=== PATIENT | female | born 1970 | race Hispanic/Latino ===

== ENCOUNTER 2018-12-15 20:18 | Emergency (ER) | payer MEDICARE, OTHER ==
[~2018-12-15] VITALS: Ht 167.6 cm; Wt 56.2 kg
[~2018-12-15 20:18] MED LIST: ALEVE220 MG PO; ALIGN4 MG PO; CYCLOBENZAPRINE5 MG PO; FLEXERIL10 MG PO; GABAPENTIN300 MG PO; LEVOTHYROXINE75 MCG PO; PRILOSEC20 MG PO; TYLENOL WITH C1 EACH PO
--- OUTSIDE RECORDS SUMMARY | 2018-12-15 20:22 | XMS REPORT ---
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 Active Problem Pain in unspecified joint M25.50 Active Problem Pain in right shoulder M25.511 Active Problem Otitis media, unspecified, left ear H66.92 Active Problem Leukopenia D72.819 Active Problem Back pain M54.9 Active Problem Rheumatoid arthritis with rheumatoid factor of multiple sites without organ or systems involvement M05.79 Active Problem Raised antibody titer R76.0 Active Problem Raynaud disease I73.00 Active Problem Sjogrens syndrome M35.00 Active Assessment Sjogrens syndrome M35.00 Active Assessment Rheumatoid arthritis with rheumatoid factor of multiple sites without organ or systems involvement M05.79 Active Assessment Encounter for long-term (current) drug use Z79.899 Active Problem Body mass index (BMI) 19 or less, adult Z68.1 Active Medications Medication Code System Code Instructions Start Date End Date Status Dosage Hydroxychloroquine Sulfate ND 61017836149 200 MG Orally Once a day Active 1 tablet with food or milk Linzess ND 26733988248 145 MCG Orally Once a day Active 1 capsule Align ND 49685436456 Orally Active as directed IB guard NDC 0 Orally BID Active 1 capsule Pilocarpine HCl NDC 69292101286 5 MG Active TAKE 1 TABLET BY MOUTH 3 TIMES A DAY Levothyroxine Sodium NDC 99589249456 75 MCG Orally Once a day Active 1 tablet Prevacid NDC 29454026572 30 MG Orally Once a day Active 1 capsule Tylenol Arthritis Pain NDC 45444622896 650 MG Orally every 8 hrs Active 2 tablets as needed Vital Signs Date/Time: September 15, 2018 BMI 19.77 Index Weight 122.5 lbs Height 66 in Temperature 98.8 F Cardiac Monitoring Heart Rate 76 /min Blood Pressure Diastolic 68 mm Hg Blood Pressure Systolic 110 mm Hg Results Name Result Date Reference Range Unit Abnormality Flag CBC (INCLUDES DIFF/PLT) ----ABSOLUTE NEUTROPHILS 2576 31833404 9528-3760 cells/uL N ----MPV 10.6 17763784 7.5-12.5 fL N ----EOSINOPHILS 0.6 21457969 % N ----HEMOGLOBIN 11.7 33861494 11.7-15.5 g/dL N ----MONOCYTES 10.1 02964689 % N ----HEMATOCRIT 34.8 18384389 35.0-45.0 % L ----LYMPHOCYTES 40.7 24553008 % N ----MCV 87.9 01879520 80.0-100.0 fL N ----NEUTROPHILS 47.7 27757159 % N ----MCH 29.5 16416903 27.0-33.0 pg N ----ABSOLUTE BASOPHILS 49 90585703 0-200 cells/uL N ----MCHC 33.6 31494222 32.0-36.0 g/dL N ----BASOPHILS 0.9 06252429 % N ----ABSOLUTE EOSINOPHILS 32 00354100 15-500 cells/uL N ----RDW 12.7 81595595 11.0-15.0 % N ----ABSOLUTE MONOCYTES 545 85395482 200-950 cells/uL N ----WHITE BLOOD CELL COUNT 5.4 69978520 3.8-10.8 Thousand/uL N ----PLATELET COUNT 285 40329532 140-400 Thousand/uL N ----RED BLOOD CELL COUNT 3.96 94049298 3.80-5.10 Million/uL N ----ABSOLUTE LYMPHOCYTES 2198 10960624 850-3900 cells/uL N C-REACTIVE PROTEIN ----C-REACTIVE PROTEIN 0.3 57786515 <8.0 mg/L N SED RATE BY MODIFIED WESTERGREN ----SED RATE BY MODIFIED WESTERGREN 9 48630995 < OR=20 mm/h N COMPREHENSIVE METABOLIC PANEL W/EGFR ----SODIUM 137 08825465 135-146 mmol/L N ----BUN/CREATININE RATIO NOT APPLICABLE 55519357 6-22 (calc) ----CHLORIDE 104 20180915 98-110 mmol/L N ----POTASSIUM 4.6 20180915 3.5-5.3 mmol/L N ----CALCIUM 9.0 20180915 8.6-10.2 mg/dL N ----PROTEIN, TOTAL 6.9 20180915 6.1-8.1 g/dL N ----CARBON DIOXIDE 25 20180915 20-32 mmol/L N ----ALBUMIN/GLOBULIN RATIO 1.7 20180915 1.0-2.5 (calc) N ----eGFR NON-AFR. RUSSIAN 104 20180915 > OR=60 mL/min/1.73m2 N ----BILIRUBIN, TOTAL 0.4 20180915 0.2-1.2 mg/dL N ----eGFR 121 20180915 > OR=60 mL/min/1.73m2 N ----ALBUMIN 4.3 20180915 3.6-5.1 g/dL N ----UREA NITROGEN (BUN) 17 20180915 7-25 mg/dL N ----GLOBULIN 2.6 20180915 1.9-3.7 g/dL (calc) N ----CREATININE 0.69 20180915 0.50-1.10 mg/dL N ----ALT 15 20180915 6-29 U/L N ----GLUCOSE 83 20180915 65-99 mg/dL N ----ALKALINE PHOSPHATASE 68 20180915 33-115 U/L N ----AST 17 20180915 10-35 U/L N Summary Purpose eClinicalWorks Submission
--- OUTSIDE RECORDS SUMMARY | 2018-12-15 20:22 | XMS REPORT ---
Author Author Denisse Mahan Organization eClinicalWorks Address Unknown Phone Unavailable Care Team Providers Care Kiln Cleaner Name Role Phone Denisse Mahan CP Unavailable [...] Active Problem Sjogrens syndrome M35.00 Active Assessment Encounter for long-term (current) drug use Z79.899 Active Assessment Rheumatoid arthritis with rheumatoid factor of multiple sites without organ or systems involvement M05.79 Active Problem Body mass index (BMI) 19 or less, adult Z68.1 Active Medications Medication Code System Code Instructions Start Date End Date Status Dosage Prevacid ND 42742619149 30 MG Orally Once a day Active 1 capsule Tylenol Arthritis Pain NDC 51868325151 650 MG Orally every 8 hrs Active 2 tablets as needed Pilocarpine HCl NDC 05566629666 5 MG Orally Three times a day Active take 1 tablet by mouth 3 times a day Levothyroxine Sodium ND 90455824725 75 MCG Orally Once a day Active 1 tablet Hydroxychloroquine Sulfate ND 84022007136 200 MG Orally Once a day Mar 13, 2018 Active take 1.5 tablet by mouth with food or milk every day Align ND 20830953230 Orally Active as directed Vital Signs Date/Time: September 14, 2017 BMI 20.17 Index Weight 125 lbs Height 66 in Temperature 97.6 F Cardiac Monitoring Heart Rate 76 /min Blood Pressure Diastolic 62 mm Hg Blood Pressure Systolic 100 mm Hg Results No Known Results Summary Purpose eClinicalWorks Submission
--- OUTSIDE RECORDS SUMMARY | 2018-12-15 20:22 | XMS REPORT | Continuity of Care Document ---
Author Author [place] Address Unknown Phone Unavailable Care Team Providers Care Med Peds Name Role Phone [facility] [employer] Unavailable Unavailable Problems Problem Status Onset Date Classification Date Reported Comments Source Sicca syndrome with other organ involvement Active Problem 09/24/2018 Lee Candelarioer Pain in unspecified joint Active Problem 09/24/2018 Lee Candelarioer Pain in right shoulder Active Problem 09/24/2018 Lee Candelarioer Otitis media, unspecified, left ear Active Problem 09/24/2018 Lee Stone Leukopenia Active Problem 09/24/2018 Lee Stone Back pain Active Problem 09/24/2018 Lee Stone Rheumatoid arthritis with rheumatoid factor of multiple sites without organ or systems involvement Active Problem 09/24/2018 Lee Stone Raised antibody titer Active Problem 09/24/2018 Lee Stone Raynaud disease Active Problem 09/24/2018 Lee Stone Sjogrens syndrome Active Problem 09/24/2018 Lee Stone Encounter for long-term drug use Active Diagnosis 09/24/2018 Lee Stone Body mass index 19 or less, adult Active Problem 09/24/2018 Lee Stone Medications Medication Details Route Status Patient Instructions Ordering Provider Order Date Source Hydroxychloroquine Sulfate bid w food NA Active 200 MG Negrito 09/11/2018 Lee Stone PredniSONE 1 tab prn Orally Active 5 MG Orally Once a day Negrito 03/15/2018 Lee Stone Hydroxychloroquine Sulfate take 1.5 tablet by mouth with food or milk every day Orally Active 200 MG Orally Once a day Negrito 03/13/2018 Lee Stone Hydroxychloroquine Sulfate take 1 tablet by mouth with food or milk every day Orally Active 200 MG Orally Once a day [place]ley 09/13/2017 Lee Stone Flector 1 patch to skin Transdermal Active 1.3 % Transdermal Twice a day [place]ley 06/15/2017 Lee Stone Prevacid 1 capsule Orally Active 30 MG Orally Once a day Negrito Lee Stone Tylenol Arthritis Pain 2 tablets as needed Orally Active 650 MG Orally every 8 hrs Negrito Lee Stone Pilocarpine HCl TAKE 1 TABLET BY MOUTH 3 TIMES A DAY NA Active 5 MG Negrito Lee Stone Levothyroxine Sodium 1 tablet Orally Active 75 MCG Orally Once a day Negrito Lee Stone Align as directed Orally Active Orally Negrito Lee Stone Prevacid 1 capsule Orally Active 30 MG Orally Once a day Dudley Lee Stone Hydroxychloroquine Sulfate 1 tablet with food or milk Orally Active 200 MG Orally Once a day Negrito Lee Stone Linzess 1 capsule Orally Active 145 MCG Orally Once a day Negrito Lee Stone IB guard 1 capsule Orally Active Orally BID Negrito Lee Stone Nucynta 1 tablet Orally Active 50 MG Orally every 6 hrs Negrito Lee Stone Hydroxychloroquine Sulfate TAKE 1 TABLET BY MOUTH WITH FOOD OR MILK EVERY DAY NA Active 200 MG Negrito Lee Stone Lyrica 1 capsule Orally Active 75 MG Orally Twice a day Negrito Lee Stone Tizanidine HCl 1 tablet as needed Orally Active 4 MG Orally Three times a day Negrito Lee Stone Allergies, Adverse Reactions, Alerts Substance Category Reaction Severity Reaction type Status Date Reported Comments Source Methotrexate Adverse Reaction nausease/palpitations Adverse Reaction Active 09/15/2018 Lee Stone Leflunomide Adverse Reaction hair loss Adverse Reaction Active 09/15/2018 Lee Stone Immunizations No Data Provided for This Section Results No Data Provided for This Section Pathology Reports No Data Provided for This Section Diagnostic Reports No Data Provided for This Section Consultation Notes No Data Provided for This Section Discharge Summaries No Data Provided for This Section History and Physicals No Data Provided for This Section Vital Signs Vital Sign Value Date Comments Source Weight 122.5 09/15/2018 Lee Stone Height 66 09/15/2018 Lee Stone Temperature Oral (F) 98.8 F 09/15/2018 Lee Stone Heart Rate 76 09/15/2018 Lee Stone Diastolic (mm Hg) 68 09/15/2018 Lee Stone Systolic (mm Hg) 110 09/15/2018 Lee Stone Weight 125 03/15/2018 Lee Stone Height 66 03/15/2018 Lee Stone Temperature Oral (F) 98.3 F 03/15/2018 Lee Stone Heart Rate 68 03/15/2018 Lee Stone Diastolic (mm Hg) 60 03/15/2018 Lee Stone Systolic (mm Hg) 110 03/15/2018 Lee Stone Weight 125 09/14/2017 Lee Stone Height 66 09/14/2017 Lee Stone Temperature Oral (F) 97.6 F 09/14/2017 Lee Stone Heart Rate 76 09/14/2017 Lee Stone Diastolic (mm Hg) 62 09/14/2017 Lee Stone Systolic (mm Hg) 100 09/14/2017 Lee Stone Weight 126 06/15/2017 Lee Stone Height 66 06/15/2017 Lee Stone Temperature Oral (F) 97.5 F 06/15/2017 Lee Stone Heart Rate 78 06/15/2017 Lee Stone Diastolic (mm Hg) 70 06/15/2017 Lee Stone Systolic (mm Hg) 112 06/15/2017 Lee Stone Weight 123 03/03/2017 Lee Stone Height 66 03/03/2017 Lee Stone Temperature Oral (F) 97.0 F 03/03/2017 Lee Stone Heart Rate 74 03/03/2017 Lee Stone Diastolic (mm Hg) 76 03/03/2017 Lee Stone Systolic (mm Hg) 118 03/03/2017 Lee Stone Encounters No Data Provided for This Section Procedures No Data Provided for This Section Assessment and Plan No Data Provided for This Section Plan of Care No Data Provided for This Section Social History No Data Provided for This Section Family History No Data Provided for This Section Advance Directives No Data Provided for This Section Functional Status No Data Provided for This Section
--- OUTSIDE RECORDS SUMMARY | 2018-12-15 20:22 | XMS REPORT ---
Author Author Wesley Stone Organization eClinicalWorks Address Unknown Phone Unavailable Care Team Providers Care Performance Makeup Artist Name Role Phone Wesley Stone CP Unavailable Allergies No Known Allergies Problems Problem Type Condition Code Onset Dates Condition Status Problem Rheumatoid arthritis with rheumatoid factor of multiple sites without organ or systems involvement M05.79 Active Problem Pain in unspecified joint M25.50 Active Problem Body mass index (BMI) 19 or less, adult Z68.1 Active Problem Pain in right shoulder M25.511 Active Problem Otitis media, unspecified, left ear H66.92 Active Problem Raynaud disease I73.00 Active Problem Back pain M54.9 Active Problem Raised antibody titer R76.0 Active Problem 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
--- OUTSIDE RECORDS SUMMARY | 2018-12-15 20:22 | XMS REPORT ---
Author Author Denisse Mahan [facility] eClinicalWorks Address Unknown Phone Unavailable Care Team Providers Care Sr Vice President Name Role Phone Denisse Mahan CP Unavailable Allergies, Adverse Reactions, Alerts Substance Reaction Event Type Methotrexate nausease/palpitations Drug Allergy Problems Problem Type Condition Code [...] Active Problem Sjogrens syndrome M35.00 Active Assessment Leukopenia D72.819 Active Assessment Rheumatoid arthritis with rheumatoid factor of multiple sites without organ or systems involvement M05.79 Active Assessment Sjogrens syndrome M35.00 Active Assessment Encounter for long-term (current) drug use Z79.899 Active Problem Body mass index (BMI) 19 or less, adult Z68.1 Active Medications Medication Code System Code Instructions Start Date End Date Status Dosage Pilocarpine HCl ND 89755371956 5 MG Active TAKE 1 TABLET BY MOUTH 3 TIMES A DAY Nucynta [facility] 92092185787 50 MG Orally every 6 hrs Active 1 tablet Align ND 38026548439 Orally Active as directed Prevacid ND 02511607059 30 MG Orally Once a day Active 1 capsule Hydroxychloroquine Sulfate ND 41786313276 200 MG Active TAKE 1 TABLET BY MOUTH WITH FOOD OR MILK EVERY DAY Lyrica ND 31703584071 75 MG Orally Twice a day Active 1 capsule Tizanidine HCl ND 74183577053 4 MG Orally Three times a day Active 1 tablet as needed Levothyroxine Sodium ND 00856372757 75 MCG Orally Once a day Active 1 tablet Tylenol Arthritis Pain ND 79546511749 650 MG Orally every 8 hrs Active 2 tablets as needed Vital Signs Date/Time: Mar 03, 2017 BMI 19.85 Index Weight 123 lbs Height 66 in Temperature 97.0 F Cardiac Monitoring Heart Rate 74 /min Blood Pressure Diastolic 76 mm Hg Blood Pressure Systolic 118 mm Hg Results Name Result Date Reference Range Unit Abnormality Flag COMPREHENSIVE METABOLIC PANEL W/EGFR ----CALCIUM 9.1 15261073 8.6-10.2 mg/dL N ----CARBON DIOXIDE 28 30547875 20-31 mmol/L N ----ALT 14 09938726 6-29 U/L N ----CREATININE 0.71 28185749 0.50-1.10 mg/dL N ----AST 17 83262180 10-35 U/L N ----eGFR NON-AFR. EQUATORIAL GUINEAN 103 91069232 > OR=60 mL/min/1.73m2 N ----ALKALINE PHOSPHATASE 64 19658826 33-115 U/L N ----eGFR 119 76404914 > OR=60 mL/min/1.73m2 N ----BILIRUBIN, TOTAL 0.3 01905407 0.2-1.2 mg/dL N ----BUN/CREATININE RATIO NOT APPLICABLE 31932584 6-22 (calc) ----ALBUMIN/GLOBULIN RATIO 1.7 58890709 1.0-2.5 (calc) N ----SODIUM 138 25632808 135-146 mmol/L N ----GLOBULIN 2.5 86832281 1.9-3.7 g/dL (calc) N ----POTASSIUM 3.7 61950463 3.5-5.3 mmol/L N ----GLUCOSE 75 96974034 65-99 mg/dL N ----CHLORIDE 104 94006726 98-110 mmol/L N ----ALBUMIN 4.3 79447133 3.6-5.1 g/dL N ----UREA NITROGEN (BUN) 16 45071939 7-25 mg/dL N ----PROTEIN, TOTAL 6.8 93196976 6.1-8.1 g/dL N SED RATE BY MODIFIED WESTERGREN ----SED RATE BY MODIFIED WESTERGREN 6 77383143 < OR=20 mm/h N C-REACTIVE PROTEIN ----C-REACTIVE PROTEIN 0.8 61046519 <8.0 mg/L N CBC (INCLUDES DIFF/PLT) ----MCHC 33.0 47734253 32.0-36.0 g/dL N ----MCH 29.0 26440555 27.0-33.0 pg N ----PLATELET COUNT 225 36024544 140-400 Thousand/uL N ----RDW 12.6 76825284 11.0-15.0 % N ----BASOPHILS 0.9 57943556 % N ----ABSOLUTE NEUTROPHILS 2463 75480041 8326-6988 cells/uL N ----ABSOLUTE LYMPHOCYTES 1659 75310602 850-3900 cells/uL N ----MPV 10.2 53167130 7.5-12.5 fL N ----ABSOLUTE BASOPHILS 42 64854717 0-200 cells/uL N ----HEMATOCRIT 33.3 00431299 35.0-45.0 % L ----NEUTROPHILS 52.4 17815237 % N ----MCV 87.9 99373690 80.0-100.0 fL N ----RED BLOOD CELL COUNT 3.79 65211638 3.80-5.10 Million/uL L ----ABSOLUTE MONOCYTES 494 62005236 200-950 cells/uL N ----ABSOLUTE EOSINOPHILS 42 30413538 15-500 cells/uL N ----HEMOGLOBIN 11.0 35406039 11.7-15.5 g/dL L ----EOSINOPHILS 0.9 64673384 % N ----WHITE BLOOD CELL COUNT 4.7 44590574 3.8-10.8 Thousand/uL N ----LYMPHOCYTES 35.3 69714865 % N ----MONOCYTES 10.5 13266791 % N Summary Purpose eClinicalWorks Submission
--- OUTSIDE RECORDS SUMMARY | 2018-12-15 20:22 | XMS REPORT ---
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 Active Assessment Rheumatoid arthritis with rheumatoid factor of multiple sites without organ or systems involvement M05.79 Active Problem Body mass index (BMI) 19 or less, adult Z68.1 Active Medications Medication Code System Code Instructions Start Date End Date Status Dosage Levothyroxine Sodium ND 81594479311 75 MCG Orally Once a day Active 1 tablet Hydroxychloroquine Sulfate ND 69745981624 200 MG September 11, 2018 Active bid w food Align ND 62271371519 Orally Active as directed PredniSONE ND 93438721064 5 MG Orally Once a day Mar 15, 2018 Apr 14, 2018 Active 1 tab prn Tylenol Arthritis Pain NDC 32191247704 650 MG Orally every 8 hrs Active 2 tablets as needed Prevacid ND 34089251478 30 MG Orally Once a day Active 1 capsule Pilocarpine HCl ND 49982306582 5 MG Active TAKE 1 TABLET BY MOUTH 3 TIMES A DAY Vital Signs Date/Time: Mar 15, 2018 BMI 20.17 Index Weight 125 lbs Height 66 in Temperature 98.3 F Cardiac Monitoring Heart Rate 68 /min Blood Pressure Diastolic 60 mm Hg Blood Pressure Systolic 110 mm Hg Results No Known Results Summary Purpose eClinicalWorks Submission
--- OUTSIDE RECORDS SUMMARY | 2018-12-15 20:22 | XMS REPORT ---
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 Active Problem Pain in unspecified joint M25.50 Active Problem Pain in right shoulder M25.511 Active Problem Body mass index (BMI) 19 or less, adult Z68.1 Active Problem Otitis media, unspecified, left ear H66.92 Active Problem Leukopenia D72.819 Active Problem Back pain M54.9 Active Problem Rheumatoid arthritis with rheumatoid factor of multiple sites without organ or systems involvement M05.79 Active Problem Raised antibody titer R76.0 Active Problem Raynaud disease I73.00 Active Problem Sjogrens syndrome M35.00 Active Medications No Known Medications Results No Known Results Summary Purpose eClinicalWorks Submission
--- OUTSIDE RECORDS SUMMARY | 2018-12-15 20:22 | XMS REPORT ---
Author Author Karli Dudley [facility] eClinicalWorks Address Unknown Phone Unavailable Care Team Providers Care Cognos Report Developer Name Role Phone Karli Dudley Unavailable Allergies, Adverse Reactions, Alerts Substance Reaction [...] long-term (current) drug use Z79.899 Active Assessment Back pain M54.9 Active Assessment Rheumatoid arthritis with rheumatoid factor of multiple sites without organ or systems involvement M05.79 Active Assessment Raynaud disease I73.00 Active Problem Body mass index (BMI) 19 or less, adult Z68.1 Active Medications Medication Code System Code Instructions Start Date End Date Status Dosage Align [facility] 11530201635 Orally Active as directed Levothyroxine Sodium ND 28606316544 75 MCG Orally Once a day Active 1 tablet Tylenol Arthritis Pain ND 47958478286 650 MG Orally every 8 hrs Active 2 tablets as needed Pilocarpine HCl ND 31028376078 5 MG Orally Three times a day Active take 1 tablet by mouth 3 times a day Prevacid ND 86761011199 30 MG Orally Once a day Active 1 capsule Hydroxychloroquine Sulfate ND 03935114517 200 MG Orally Once a day September 13, 2017 Active take 1 tablet by mouth with food or milk every day Flector [facility] 77209008212 1.3 % Transdermal Twice a day Jun 15, 2017 September 13, 2017 Active 1 patch to skin Vital Signs Date/Time: Jun 15, 2017 BMI 20.33 Index Weight 126 lbs Height 66 in Temperature 97.5 F Cardiac Monitoring Heart Rate 78 /min Blood Pressure Diastolic 70 mm Hg Blood Pressure Systolic 112 mm Hg Results No Known Results Summary Purpose eClinicalWorks Submission
--- OUTSIDE RECORDS SUMMARY | 2018-12-15 20:22 | XMS REPORT ---
Author Author [facility] Address Unknown Phone Unavailable Care Team Providers Care Industrial Relations Director Name Role Phone Unavailable Unavailable Problems This patient has no known problems. Allergies, Adverse Reactions, Alerts This patient has no known allergies or adverse reactions. Medications This patient has no known medications. Results Test Description Test Time Test Comments Text Results Atomic Results Result Comments BREAST ULTRASOUND BILATERAL 2018-06-29 16:59:41 - BREAST ULTRASOUND BILATERALULTRASOUND OF BOTH BREASTS AND BOTH AXILLA: 06/29/2018CLINICAL: Supplemental Screening for Dense Breast. Comparison is made to exams dated 06/11/2018 mammogram and 03/15/20 13 ultrasound - [facility]-. Real-time ultrasound of both breasts and both axilla was performed. No abnormalities were seen sonographically in either breast or either axilla. Clinical breast exam was unremarkable.IMPRESSION: NEGATIVE There is no sonographic evidence of malignancy. Patient has been informed that she has areas of dense breast tissue that could make it difficult to find a small cancer. A screening mammogram and supplemental ultrasound for dense breast tissue is recommended in 1 year. Annie Cortez M.D. dm/:06/29/2018 16:59:41 Sql Programmer: Cortney Obregon [facility]-letter sent: BIRADS 1-2 Combo FU Letter Ultrasound BI- RADS: 1 Negative SCR MAMM BILATERAL SEBASTIAN CAD DIGITAL 2018-06-11 13:11:39 - SCR MAMM BILATERAL SEBASTAIN CAD DIGITALBILATERAL DIGITAL SCREENING MAMMOGRAM 3D/2D WITH CAD: 06/11/2018CLINICAL: Asymptomatic. Digital breast tomosynthesis was performed in addition to routine CC and MLO views. Current mammographic images were evaluated by either a [employer] M-Vu or a [employer] ImageChecker CAD (computer aided detection system). Comparison is made to exams dated 05/18/2017 mammogram, 03/12 mammogram, and 03/16/2015 mammogram - [facility]. The tissue of both breasts is heterogeneously dense. This may lower the sensitivity of mammography. There are benign calcifications in both breasts. No suspicious mass, architectural distortion, malignant type calcification, or lymph node abnormality detected. Breast architecture is stable compared to prior exams.IMPRESSION: BENIGNThere is no mammographic evidence of malignancy. Resume annual screening mammography in one year. Dilan Matute M.D. ss/penrad:06/11/2018 13:11:39 Sql Programmer: Roseann Cox FW, [facility] sent: BIRADS 1-2 Normal Mammogram BI-RADS: 2 Benign
--- OUTSIDE RECORDS SUMMARY | 2018-12-15 20:22 | XMS REPORT | Clinical Summary ---
Author Author [facility] Organization [facility] Address Unknown Phone Unavailable Care Team Providers Care Wood Engraver Name Role Phone Kate Ricther MD PCP Allergies Comments Active Allergy Reactions Severity Noted Date butrans patches Buprenorphine 12/09/2016 Added based on information entered during case entry, please review and add reactions, type, and severity as needed Latex 02/26/2017 Leflunomide Other (See 09/14/2017 Comments) Methotrexate Other (See 09/14/2017 Comments) Medications End Date Status Medication Sig Dispensed Refills Start Date Active hydroxychloroquine TAKE 1 TABLET 0 (PLAQUENIL) 200 mg tablet BY MOUTH 7 EVERY DAY WITH FOOD OR MILK after lunch Active levothyroxine (SYNTHROID, TAKE 1 TABLET 1 LEVOXYL) 75 mcg tablet BY MOUTH IN 7 THE MORNING ON AN EMPTY STOMACH ONCE A DAY - in the morning Active pilocarpine (SALAGEN) 5 Take 5 mg by 0 MG tablet mouth 3 7 (three) times a day. Active levocetirizine (XYZAL) 5 Take 5 mg by 1 MG tablet mouth every 7 evening. Active pregabalin (LYRICA) 75 MG Take 75 mg by 0 capsule mouth 2 (two) times a day. Active tiZANidine (ZANAFLEX) 4 Take 4 mg by 0 MG tablet mouth 2 (two) times a day. Active MULTIVITAMIN ORAL Take by 0 mouth. Active NUCYNTA 50 mg tablet TAKE 1 TABLET 0 BY MOUTH 7 TWICE A DAY NEEDED FOR PAIN MAX 2 PER DAY Active ferrous sulfate 325 (65 Take 1 tablet 0 FE) MG tablet by mouth once 7 daily. Active ondansetron ODT (ZOFRAN Take 1 tablet 10 tablet 0 ODT) 4 MG disintegrating (4 mg total) 8 tablet by mouth every 8 (eight) hours as needed for nausea for up to 10 doses. Active cyclobenzaprine Take 5 mg by 0 (FLEXERIL) 5 mg tablet mouth 2 (two) times a day as needed for muscle spasms. 01/18/2018 sucralfate (CARAFATE) 1 Take 1 tablet 30 tablet 0 gram tablet (1 g total) 8 by mouth 4 (four) times a day before meals and nightly for 30 doses. Active Problems Comments Yes No known active problems Encounters Care Team Description Date Type Specialty Lex Handley MD Chronic bilateral low back pain with left-sided sciatica (Primary Dx); Failed back surgical syndrome 02/01/2018 Office Visit Neurosurgery Rey Gary NP-C Huque, Yasin Imrun, MD Epigastric abdominal pain (Primary Dx); RUQ abdominal pain; Nausea; Biliary colic 01/10/2018 Emergency Emergency Medicine after 12/14/2017 Family History Medical History Relation Name Comments No Known Problems Father Arthritis Mother Hypertension Mother Bipolar disorder Sister Depression Sister Relation Name Status Comments Father Alive Mother Alive Sister Alive Social History Date Tobacco Use Types Packs/Day Years Used Never Smoker Smokeless Tobacco: Never Used Alcohol Use Drinks/Week oz/Week Comments No Comments Yes Sex Assigned at Date Recorded Not on file Industry Job Start Date Occupation Not on file Not on file Not on file Travel End Travel History Travel Start No recent travel history available. Last Filed Vital Signs Time Taken Vital Sign Reading 01/10/2018 8:41 PM CDT Blood Pressure 132/71 01/10/2018 8:41 PM CDT Pulse 65 01/10/2018 8:43 PM CDT Temperature 36.8 C (98.3 F) 01/10/2018 8:41 PM CDT Respiratory Rate 18 01/10/2018 8:47 PM CDT Oxygen Saturation 99% - Inhaled Oxygen - Concentration 01/10/2018 4:54 PM CDT Weight 55.8 kg (123 lb) 01/10/2018 4:54 PM CDT Height 167.6 cm (5' 6") 01/10/2018 4:54 PM CDT Body Mass Index 19.85 Plan of Treatment Health Maintenance Due Date Last Done Comments INFLUENZA VACCINE 12/09/2018 Implants Device Identifier Shelf Expiration Date Model / Serial / Lot Implanted Type Area Manufactur er 07/08/2018 [id number] / / [id number] Kit Hemostatic Matrix W/Thrombin Surgical N/A: N/A [employer] 8ml Surgiflo - [id number] Implants; - Implanted: Qty: 1 on 03/20/2017 by [employer]; Clive Okeefe MD [employer]; Surgical Wires Procedures Comments Procedure Name Priority Date/Time Associated Diagnosis ECG ED PRELIMINARY Routine 01/10/2018 INTERPRETATION 8:51 PM CDT US GALLBLADDER STAT 01/10/2018 6:27 PM CDT ZZESTIMATED GFR STAT 01/10/2018 6:00 PM CDT TROPONIN STAT 01/10/2018 6:00 PM CDT CREATINE KINASE, TOTAL STAT 01/10/2018 (CPK) 6:00 PM CDT PARTIAL THROMBOPLASTIN STAT 01/10/2018 TIME (PTT) 6:00 PM CDT PROTHROMBIN TIME WITH INR STAT 01/10/2018 6:00 PM CDT LIPASE LEVEL STAT 01/10/2018 6:00 PM CDT COMPREHENSIVE METABOLIC STAT 01/10/2018 PANEL 6:00 PM CDT HC COMPLETE BLD COUNT STAT 01/10/2018 W/AUTO DIFF 6:00 PM CDT HCG QUALITATIVE, URINE STAT 01/10/2018 SCREEN 5:52 PM CDT URINALYSIS SCREEN AND STAT 01/10/2018 MICROSCOPY, WITH REFLEX 5:52 PM CDT TO CULTURE ECG 12-LEAD STAT 01/10/2018 4:48 PM CDT after 12/14/2017 Results * ECG ED Preliminary Interpretation - NOT AN ORDER (01/10/2018 8:51 PM CDT) Narrative Performed At [facility] 01/10/2018 11:03 PM ECG ED Preliminary Interpretation - Not an Order Performed by: REY GARY Authorized by: REY GARY ECG reviewed by ED Physician in the absence of a international nurse: yes Interpretation: Interpretation: normal Rate: ECG rate:78 ECG rate assessment: normal Rhythm: Rhythm: sinus rhythm Ectopy: Ectopy: none QRS: QRS axis:Normal QRS intervals:Normal ST segments: ST segments:Normal T waves: T waves: normal * US Gallbladder (01/10/2018 6:27 PM CDT) Specimen Narrative Performed At Examination: [facility]DER [facility] Clinical history: upper abdominal pain Comparison: None IMPRESSION:Transverse and longitudinal sonographic images were obtained through the gallbladder fossa. 1.A few stones are present within an otherwise normal and nondistended gallbladder without evidence of pericholecystic fluid or gallbladder wall thickening. 2.The common duct is within normal limits at0.4 cm. 3.The portal vein is patent. Gallbladder measurement guidelines *Gallbladder distention: Greater than 9 x 4 cm (longitudinal by transverse dimension) *Wall thickening: Greater than 3 mm *Common bile duct dilatation: Greater than 6 mm (allowing 1 additional millimeter for each decade of age greater than 60 years) *Common bile duct dilatation status post cholecystectomy: Greater than 10 mm *Portal vein dilatation: Greater than 1.3 cm (measurements are variable and dependent upon hydration status and respiration) [facility]-[id number] Procedure Note Interface, Radiology Results Incoming - 01/10/2018 6:37 PM CDT Examination: US GALLBLADDER Clinical history: upper abdominal pain Comparison: None IMPRESSION: Transverse and longitudinal sonographic images were obtained through the gallbladder fossa. 1. A few stones are present within an otherwise normal and nondistended gallbladder without evidence of pericholecystic fluid or gallbladder wall thickening. 2. The common duct is within normal limits at 0.4 cm. 3. The portal vein is patent. Gallbladder measurement guidelines * Gallbladder distention: Greater than 9 x 4 cm (longitudinal by transverse dimension) * Wall thickening: Greater than 3 mm * Common bile duct dilatation: Greater than 6 mm (allowing 1 additional millimeter for each decade of age greater than 60 years) * Common bile duct dilatation status post cholecystectomy: Greater than 10 mm * Portal vein dilatation: Greater than 1.3 cm (measurements are variable and dependent upon hydration status and respiration) [facility]-[id number] Performing Organization Address City/State/Zipcode Phone Number [facility] [address] [place] [address] * Estimated GFR (01/10/2018 6:00 PM CDT) [facility] GFR Non Af Amer >90 mL/min/1.[address] [facility] DEPARTMENT OF PATHOLOGY AND [facility] MEDICINE GFR Af Amer >90 mL/min/1.[address] [facility] Comment: DEPARTMENT OF Chronic kidney disease: <60 PATHOLOGY AND mL/min/1.73m2 GENOMIC Kidney failure: <15 MEDICINE mL/min/1.73m2 The estimated GFR is calculated from the IDMS-traceable Modification of Diet in Renal Disease Equation. The accuracy of the calculation is poor when the creatinine is normal. Calculated values >90 mL/min/1.73m2 are not reported. This equation has not been validated in children (<18 years), women, the elderly (>70 years), or ethnic groups other than Caucasians and Americans. Specimen Plasma specimen Performing Organization Address [facility] Phone Number [address] [place] [phone] PATHOLOGY AND [facility] * Troponin (01/10/2018 6:00 PM CDT) [facility] Troponin <0.300 0.000 - 0.300 ng/mL [facility] Comment: DEPARTMENT OF 0.30 - 1.49 PATHOLOGY AND ng/mlMay GENOMIC indicate increased risk of MEDICINE acute coronary syndrome. >=1.5 ng/ml Consistent with acute myocardial infarction. The diagnostic value of a single normal or non-diagnostic result is questionable.Serial samples at 2-6 hour intervals are required to rule out acute myocardial injury. Specimen Plasma specimen Performing Organization Address [facility] Phone Number [address] [place] [phone] PATHOLOGY AND [facility] * Partial thromboplastin time, activated (01/10/2018 6:00 PM CDT) [facility] PTT 29.7 23.0 - 36.[address] [facility] Comment: DEPARTMENT OF PTT therapeutic range for PATHOLOGY AND unfractionated heparin is GENOMIC 61.0-112.0 seconds which MEDICINE corresponds to Anti-Xa 0.3-0.7 U/ml. Specimen Blood Performing Organization Address [facility] Phone Number [address] [place] [phone] PATHOLOGY AND GENOMIC MEDICINE * Prothrombin time with INR (01/10/2018 6:00 PM CDT) [facility] Prothrombin 12.5 12.0 - 15.[address] [facility] time DEPARTMENT OF PATHOLOGY AND GENOMIC MEDICINE INR 0.[address] [facility] Comment: DEPARTMENT OF The International Normalized PATHOLOGY AND Ratio (INR) is a therapeutic GENOMIC monitoring tool for patients MEDICINE who are stable on oral anticoagulant therapy. An INR of 2.0-3.0 is suggested for deep vein thrombosis/pulmonary embolism. Specimen Blood Performing Organization Address City/State/Zipcode Phone Number [facility] [place] [place] [address] [address] [place] [address] PATHOLOGY AND GENOMIC MEDICINE * CBC with platelet and differential (01/10/2018 6:00 PM CDT) [facility] WBC 6.97 4.50 - 11.00 k/uL [facility] DEPARTMENT OF PATHOLOGY AND GENOMIC MEDICINE RBC 4.22 4.20 - 5.50 m/uL [facility] DEPARTMENT OF PATHOLOGY AND GENOMIC MEDICINE HGB 12.3 12.0 - 16.0 g/dL [facility] DEPARTMENT OF PATHOLOGY AND GENOMIC MEDICINE HCT 37.8 37.0 - 47.0 % [facility] DEPARTMENT OF PATHOLOGY AND GENOMIC MEDICINE MCV 89.6 82.0 - 100.[address] [facility] DEPARTMENT OF PATHOLOGY AND GENOMIC MEDICINE MCH 29.1 27.0 - 34.[address] [facility] DEPARTMENT OF PATHOLOGY AND GENOMIC MEDICINE MCHC 32.5 31.0 - 37.0 g/dL [facility] DEPARTMENT OF PATHOLOGY AND GENOMIC MEDICINE RDW - SD 42.5 37.0 - 55.[address] [facility] DEPARTMENT OF PATHOLOGY AND GENOMIC MEDICINE MPV 9.6 8.8 - 13.[address] [facility] DEPARTMENT OF PATHOLOGY AND GENOMIC MEDICINE Platelet count 266 150 - 400 k/uL [facility] DEPARTMENT OF PATHOLOGY AND GENOMIC MEDICINE Nucleated RBC 0.00 /[address] [facility] DEPARTMENT OF PATHOLOGY AND GENOMIC MEDICINE Neutrophils 66.1 39.0 - 69.0 % [facility] DEPARTMENT OF PATHOLOGY AND GENOMIC MEDICINE Lymphocytes 26.1 25.0 - 45.0 % [facility] DEPARTMENT OF PATHOLOGY AND GENOMIC MEDICINE Monocytes 7.0 0.0 - 10.0 % [facility] DEPARTMENT OF PATHOLOGY AND GENOMIC MEDICINE Eosinophils 0.3 0.0 - 5.0 % [facility] DEPARTMENT OF PATHOLOGY AND GENOMIC MEDICINE Basophils 0.4 0.0 - 1.0 % [facility] DEPARTMENT OF PATHOLOGY AND GENOMIC MEDICINE Specimen Blood Performing Organization Address [facility] Phone Number [address] [place] [address] PATHOLOGY AND GENOMIC MEDICINE * Lipase level (01/10/2018 6:00 PM CDT) Lipase 23 13 - 60 U/L [facility] DEPARTMENT OF PATHOLOGY AND GENOMIC MEDICINE Specimen Plasma specimen Performing Organization Address [facility] Phone Number [address] [place] [address] PATHOLOGY AND GENOMIC MEDICINE * Creatine kinase, total (CPK) (01/10/2018 6:00 PM CDT) Pathologist [facility] Creatine kinase 65 26 - 192 U/L [facility] DEPARTMENT OF PATHOLOGY AND GENOMIC MEDICINE Specimen Plasma specimen Performing Organization Address [facility] Phone Number [address] [place] [address] PATHOLOGY AND GENOMIC MEDICINE * Comprehensive metabolic panel (01/10/2018 6:00 PM CDT) Sodium 142 135 - 148 mEq/L [facility] DEPARTMENT OF PATHOLOGY AND GENOMIC MEDICINE Potassium 4.0 3.5 - 5.0 mEq/L [facility] DEPARTMENT OF PATHOLOGY AND GENOMIC MEDICINE Chloride 104 98 - 112 mEq/L [facility] DEPARTMENT OF PATHOLOGY AND GENOMIC MEDICINE CO2 25 24 - 31 mEq/L [facility] DEPARTMENT OF PATHOLOGY AND GENOMIC MEDICINE Anion gap 13@ANIO 7 - 15 mEq/L [facility] DEPARTMENT OF PATHOLOGY AND GENOMIC MEDICINE BUN 14 6 - 20 mg/dL [facility] DEPARTMENT OF PATHOLOGY AND GENOMIC MEDICINE Creatinine 0.7 0.5 - 0.9 mg/dL [facility] DEPARTMENT OF PATHOLOGY AND GENOMIC MEDICINE Glucose 80 65 - 99 mg/dL [facility] DEPARTMENT OF PATHOLOGY AND GENOMIC MEDICINE Calcium 9.2 8.3 - 10.2 mg/dL [facility] DEPARTMENT OF PATHOLOGY AND GENOMIC MEDICINE Protein 7.8 6.3 - 8.3 g/dL [facility] Comment: DEPARTMENT OF [place] PATHOLOGY AND 4.6-7.0 g/dL GENOMIC 1 MEDICINE week 4.4-7.6 g/dL 7 months-1year 5.1-7.3 g/dL 1-2 years5.6-7 .5 g/dL >3 years6.0-8 .0 g/dL 18-150 6.3-8.3 g/dL Albumin 4.7 3.5 - 5.0 g/dL [facility] DEPARTMENT OF PATHOLOGY AND GENOMIC MEDICINE A/G ratio 1.5 0.7 - 3.[address] [facility] DEPARTMENT OF PATHOLOGY AND GENOMIC MEDICINE Alkaline 78 35 - 104 U/L [facility] phosphatase DEPARTMENT OF PATHOLOGY AND GENOMIC MEDICINE AST 21 10 - 35 U/L [facility] DEPARTMENT OF PATHOLOGY AND GENOMIC MEDICINE ALT 15 5 - 50 U/L [facility] DEPARTMENT OF PATHOLOGY AND GENOMIC MEDICINE Total bilirubin 0.2 0.0 - 1.2 mg/dL [facility] DEPARTMENT OF PATHOLOGY AND GENOMIC MEDICINE Specimen Plasma specimen Performing Organization Address City/State/Zipcode Phone Number [place] [phone] [place] [address] PATHOLOGY AND GENOMIC MEDICINE * Urinalysis screen and microscopy, with reflex to culture (01/10/2018 5:52 PM CDT) Specimen site Clean catch [facility] DEPARTMENT OF PATHOLOGY AND GENOMIC MEDICINE Color, UA Straw [facility] DEPARTMENT OF PATHOLOGY AND GENOMIC MEDICINE Appearance, UA Clear [facility] DEPARTMENT OF PATHOLOGY AND GENOMIC MEDICINE Specific 1.003 1.001 - 1.[address] [facility] gravity, DEPARTMENT OF PATHOLOGY AND GENOMIC MEDICINE pH, UA 6.0 5.0 - 8.[address] [facility] DEPARTMENT OF PATHOLOGY AND GENOMIC MEDICINE Protein, UA Negative Negative [facility] DEPARTMENT OF PATHOLOGY AND GENOMIC MEDICINE Glucose, UA Negative Negative [facility] DEPARTMENT OF PATHOLOGY AND GENOMIC MEDICINE Ketones, UA Negative Negative [facility] DEPARTMENT OF PATHOLOGY AND GENOMIC MEDICINE Bilirubin, UA Negative Negative [facility] DEPARTMENT OF PATHOLOGY AND GENOMIC MEDICINE Blood, UA Negative Negative [facility] DEPARTMENT OF PATHOLOGY AND GENOMIC MEDICINE Nitrite, UA Negative Negative [facility] DEPARTMENT OF PATHOLOGY AND GENOMIC MEDICINE Urobilinogen, Negative <2.0 [facility] DEPARTMENT OF PATHOLOGY AND GENOMIC MEDICINE Leukocyte Negative Negative [facility] esterase, DEPARTMENT OF PATHOLOGY AND GENOMIC MEDICINE Epithelial Moderate /HPF [facility] cells, DEPARTMENT OF PATHOLOGY AND GENOMIC MEDICINE WBC, UA None seen 0 - 4 /HPF [facility] DEPARTMENT OF PATHOLOGY AND GENOMIC MEDICINE RBC, UA 0-5 0 - 5 /HPF [facility] DEPARTMENT OF PATHOLOGY AND GENOMIC MEDICINE Bacteria, UA Trace None seen [facility] DEPARTMENT OF PATHOLOGY AND GENOMIC MEDICINE Yeast, UA None seen [facility] DEPARTMENT OF PATHOLOGY AND GENOMIC MEDICINE Yeast with None seen [facility] pseudohyphae, DEPARTMENT OF UA PATHOLOGY AND GENOMIC MEDICINE Specimen Urine Performing Organization Address [facility] Phone Number [address] [place] [address] PATHOLOGY AND GENOMIC MEDICINE * hCG qualitative, urine screen (01/10/2018 5:52 PM CDT) hCG Negative Negative [facility] qualitative, Comment: DEPARTMENT OF urine The manufacturers stated PATHOLOGY AND sensitivity of HcG test for GENOMIC serum is >/=10 MEDICINE mIU/ml and urine is >/=20mIU/ml. Specimen Urine Performing Organization Address [facility] Phone Number [address] [place] [address] PATHOLOGY AND GENOMIC MEDICINE * ECG 12 lead (01/10/2018 4:48 PM CDT) Ventricular 78 [facility] rate Atrial rate 78 [facility] SC interval 132 [facility] QRSD interval 78 [facility] QT interval 372 [facility] QTC interval 424 [facility] P axis 1 54 [facility] QRS axis 1 58 [facility] T wave axis 41 [facility] EKG impression Normal sinus rhythm-Normal [facility] MUSE ECG-In automated comparison with ECG of 06-MAR-2017 14:29,-No significant change was found- Specimen Performing Organization Address City/[facility] Phone Number [facility] [address] [place] [address] after 12/14/2017 Insurance Type Payer Benefit Subscriber ID Effective Phone Address Plan / Dates Group HMO AETNA AETNA xxxxxxxxxx [id number] HMO,POS,EP resent O, MC/EC Advance Directives Patient has advance care planning documents on file. For more information, pleas e contact: Marshal Perry [address] [place] [address]
[2018-12-15] MEDS ORDERED: KETOROLAC TROMETHAMINE 30 MG/ML VIAL IV ONE (20:25)
[2018-12-15] MEDS ORDERED: ONDANSETRON HCL INJ 2MG/ML 2ML 2 MG/ML VIAL IV ONE (20:25)
[2018-12-15] MEDS ORDERED: DIPHENHYDRAMINE HCL INJ 50 MG/ML VIAL IV ONE (20:30)
[2018-12-15] MEDS ORDERED: SODIUM CHLORIDE 0.9% 1000ML 1,000 ML IV SCH ×2 (20:30→21:30)
[2018-12-15] MEDS ORDERED: ONDANSETRON HCL INJ 2MG/ML 2ML 2 MG/ML VIAL ONE (20:44)
[2018-12-15] MEDS ORDERED: DIPHENHYDRAMINE HCL INJ 50 MG/ML VIAL ONE (20:44)
[2018-12-15] MEDS ORDERED: KETOROLAC TROMETHAMINE 30 MG/ML VIAL ONE (20:44)
[2018-12-15] MEDS ORDERED: SODIUM CHLORIDE 0.9% 1000ML 1,000 ML ONE (20:45)
[2018-12-15] MEDS ORDERED: MORPHINE SULFATE 2 MG/ML SYR 1ML IV STA (21:24)
[2018-12-15] MEDS ORDERED: MORPHINE SULFATE INJ 4 MG/ML INJ 1ML IV ONE (21:30)
[2018-12-15] MEDS ORDERED: MORPHINE SULFATE INJ 4 MG/ML INJ 1ML ONE (21:30)
[2018-12-15 21:51] VITALS: BP 104/64
== END 2018-12-15 22:10 | disposition home or self-care (01) ==
LOC: FSED 20:18
DX: G43.829 Menstrual migraine, not intractable, without status migrainosus (principal)
CPT/HCPCS: 96374; 96375; 99283; J1200; J1885; J2405; J7030; J2270